=== PATIENT | female | born 1960 | race Caucasian/White ===

== ENCOUNTER 2016-05-20 14:37 | Emergency (ER) | payer OTHER ==
[~2016-05-20] VITALS: Ht 154.9 cm; Wt 67.6 kg
[~2016-05-20 14:37] MED LIST: ALPRAZOLAM0.25 M2 PO; ASPIR-LOW81 MG PO; CEFDINIR300 MG PO; CLINDAMYCIN HC300 MG PO; COMBIVENT200 INHALA IH; CRESTOR PO; CYCLOBENZAPRINE10 MG PO; DUONEB 2.5-0.5 M3 ML AEROSOL; DURAGESIC12 MCG TD; HYDROCODONE-HO473 ML PO; IBUPROFEN100 MG/5 M PO; LEVOTHYROXINE50 MCG PO; LIDODERM 5% P1 PATCH TD; LO-DOSE ASPIRIN81 M1 PO; LORTAB 10 MG-3473 ML PO; MAALOX ADVANCE355 ML PO; MOTRIN600 MG PO; NAPROXEN500 MG PO; NEFAZODONE HCL150 MG PO; NIRAVAM0.25 MG PO; PERCOCET 5/31 TABLET PO; PREDNISONE10 M1 PO; PREDNISONE10 MG PO; PREDNISONE20 MG PO; PREDNISONE5 MG PO; PROVENTIL,2.5 MG/3 M IH; RANITIDINE HCL150 M1 PO; SILVADENE20 GM TP; SINGULAIR10 MG PO; TUDORZA PRESS400 MCG IH; ULTRAM50 MG PO; VENTOLIN HFA18 GM IH; VICODIN 5-3001 EACH PO
[2016-05-20] MEDS ORDERED: CLINDAMYCIN HC150 MG PO (19:56)
[2016-05-20 20:04] LABS: EOSINOPHIL (%) 1.1 % (0-5); EOSINOPHIL COUNT 0.1 K/uL (0-0.3); HEMATOCRIT 39.7 % (36.0-46.0); IMMATURE GRANULOCYTE (%) 0.3 % (0.0-0.7); INSTRUMENT ABS NEUTROPHIL CT 4.7 K/uL; LYMPHOCYTE COUNT 0.9 K/uL (1.0-2.8); MCH 30.6 PG (29.0-34.0); MCHC 33.5 G/DL (30.0-36.0); MCV 91.5 FL (83-99); MEAN PLAT.VOLUME 9.9 uM^3 (9.5-12.4); MONOCYTE (%) 6.5 % (3-12); MONOCYTE COUNT 0.4 K/uL (0-0.8); NEUTROPHIL (%) 76.9 % (45-76); NEUTROPHIL COUNT 4.7 K/uL (1.8-6.4); PLATELET COUNT 290 K/uL (156-360); RBC DIS.WIDTH-CV 13.2 % (11.8-14.6); RED BLOOD COUNT 4.34 M/uL (3.80-5.20); WHITE BLOOD COUNT 6.1 K/uL (4.1-10.2)
[2016-05-20 20:16] LABS: CHLORIDE 105 mEq/L (99-109); SODIUM 138 mEq/L (136-147)
[2016-05-20 20:18] LABS: GLUCOSE 98 mg/dL (70-99)
[2016-05-20 20:19] LABS: ANION GAP 8 MEQ/L (2-14)
[2016-05-20 20:21] VITALS: BP 146/71
[2016-05-20 20:22] LABS: GFR ESTIMATE (CALCULATED) 54 mL/min/
[2016-05-20 20:23] LABS: UREA NITROGEN (BUN) 12 mg/dL (9-23)
== END 2016-05-20 20:32 | disposition home or self-care (01) ==
LOC: EME 14:37
PROVIDERS: Physician Assistant
DX: L03.221 Cellulitis of neck (principal); Z85.21 Personal history of malignant neoplasm of larynx; J44.9 Chronic obstructive pulmonary disease, unspecified; J45.909 Unspecified asthma, uncomplicated; Z79.82 Long term (current) use of aspirin; Z87.891 Personal history of nicotine dependence
CPT/HCPCS: 70491; 80048; 85025; 99281; 99285; J7040

== ENCOUNTER 2016-10-22 14:47 | Emergency (ER) | payer OTHER ==
[~2016-10-22] VITALS: Ht 157.5 cm; Wt 67.5 kg
[~2016-10-22 14:47] MED LIST changes: +CLINDAMYCIN HC150 MG PO
[2016-10-22] MEDS ORDERED: VISTARIL50 MG PO (18:49)
[2016-10-22 19:10] VITALS: BP 122/76
[2016-10-24 08:17] LABS: POC NON-PRINT COM 1 ND
== END 2016-10-22 19:11 | disposition home or self-care (01) ==
LOC: EME 14:47
PROVIDERS: Physician Assistant
DX: R21 Rash and other nonspecific skin eruption (principal); T48.6X5A Adverse effect of antiasthmatics, initial encounter; J44.9 Chronic obstructive pulmonary disease, unspecified; K21.9 Gastro-esophageal reflux disease without esophagitis; Z87.891 Personal history of nicotine dependence; Z88.1 Allergy status to other antibiotic agents; Z88.0 Allergy status to penicillin
CPT/HCPCS: 82272; 99281; 99284

== ENCOUNTER 2017-02-14 20:12 | Emergency (ER) | payer OTHER ==
[~2017-02-14] VITALS: Ht 157.5 cm; Wt 71.1 kg
[~2017-02-14 20:12] MED LIST changes: +VISTARIL50 MG PO
[2017-02-14 21:59] VITALS: BP 125/73
== END 2017-02-14 21:59 | disposition home or self-care (01) ==
LOC: EME → EDBD 20:12 → EME 20:12
DX: R13.10 Dysphagia, unspecified (principal); R06.02 Shortness of breath; R05 Cough; Z85.818 Personal history of malignant neoplasm of other sites of lip, oral cavity, and pharynx; J44.9 Chronic obstructive pulmonary disease, unspecified; Z87.891 Personal history of nicotine dependence
CPT/HCPCS: 70360; 99281; 99284

== ENCOUNTER → 2017-03-06 | Outpatient (CLI) | payer OTHER | END | disposition home or self-care (01) | DX: R13.10 Dysphagia, unspecified (principal); Z87.01 Personal history of pneumonia (recurrent); Z86.79 Personal history of other diseases of the circulatory system; Z87.19 Personal history of other diseases of the digestive system; Z85.9 Personal history of malignant neoplasm, unspecified | CPT/HCPCS: 92611 GN; G8996 GN CH; G8997 GN CH; G8998 GN CH ==

== ENCOUNTER 2017-04-16 18:45 | Emergency (ER) | payer OTHER ==
[~2017-04-16] VITALS: Ht 157.5 cm; Wt 70.8 kg
[2017-04-16] MEDS ORDERED: LIDOCAINE20 MG/1 M5 PO (19:31)
[2017-04-16 20:56] VITALS: BP 106/70
== END 2017-04-16 20:57 | disposition home or self-care (01) ==
LOC: EME 18:45
DX: J38.5 Laryngeal spasm (principal); F41.9 Anxiety disorder, unspecified; K21.9 Gastro-esophageal reflux disease without esophagitis; J44.9 Chronic obstructive pulmonary disease, unspecified; F32.9 Major depressive disorder, single episode, unspecified; Z85.819 Personal history of malignant neoplasm of unspecified site of lip, oral cavity, and pharynx; Z92.3 Personal history of irradiation; Z87.891 Personal history of nicotine dependence; Z90.49 Acquired absence of other specified parts of digestive tract; Z91.040 Latex allergy status; Z88.5 Allergy status to narcotic agent; Z88.2 Allergy status to sulfonamides; Z88.0 Allergy status to penicillin; Z88.1 Allergy status to other antibiotic agents; Z88.8 Allergy status to other drugs, medicaments and biological substances
CPT/HCPCS: 99281; 99284

== ENCOUNTER 2017-05-15 09:13 | Emergency (ER) | payer OTHER ==
[~2017-05-15] VITALS: Ht 157.5 cm; Wt 68.2 kg
[~2017-05-15 09:13] MED LIST changes: +LIDOCAINE20 MG/1 M5 PO
[2017-05-15] MEDS ORDERED: NAPROSYN500 MG PO (12:14)
[2017-05-15 12:15] VITALS: BP 120/74
== END 2017-05-15 12:22 | disposition home or self-care (01) ==
LOC: EME 09:13
DX: S39.012A Strain of muscle, fascia and tendon of lower back, initial encounter (principal); M25.551 Pain in right hip; W01.0XXA Fall on same level from slipping, tripping and stumbling without subsequent striking against object, initial encounter; M51.36 Other intervertebral disc degeneration, lumbar region; Z79.82 Long term (current) use of aspirin; Z88.0 Allergy status to penicillin; Z88.2 Allergy status to sulfonamides; Z87.891 Personal history of nicotine dependence
CPT/HCPCS: 72100; 73502; 99281; 99284; J1885